=== PATIENT | female | born 1990 | race Caucasian/White ===

== ENCOUNTER → 2021-12-21 07:40 | Outpatient (CLI) | payer OTHER, SELFPAY ==
--- NOTE | ~2021-12-21 | US_ITS ---
EXAMINATION: US breast LT limited HISTORY: Palpable lump of the lower inner left breast TECHNIQUE: Limited right breast ultrasound is performed. FINDINGS: There is a 1.6 x 1.3 cm oval, circumscribed, parallel, hypoechoic mass with posterior acous tic enhancement and no internal vascularity at the 7:00 location 4 cm from the nipple corresponding t o the palpable abnormality of concern. An adjacent 1.0 x 0.7 cm mass with similar sonographic feature s is also noted. 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 Recommend co ntinued clinical follow-up and targeted breast ultrasound in six months. BI-RADS category 3, probably benign findings. Reviewed, dictated and finalized at location A. 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 Recommend continued clinical follow-up and targeted breast ultrasound in six months. BI-RADS category 3, probably benign findings.
== END ==
PROVIDERS: PCP Internal Medicine; Visit Provider Nurse Practitioner
DX: N63.20 Unspecified lump in the left breast, unspecified quadrant (principal); R92.8 Other abnormal and inconclusive findings on diagnostic imaging of breast
CPT/HCPCS: 76642